=== PATIENT | female | born 1955 | race Caucasian/White ===

== ENCOUNTER → 2016-08-10 13:19 | Outpatient (CLI) | payer OTHER | END | disposition home or self-care (01) | LOC: D.MRI 13:19 | DX: M25.511 Pain in right shoulder (principal) ==

== ENCOUNTER → 2020-10-05 14:57 | Outpatient (CLI) | payer MEDICARE, OTHER | END | disposition home or self-care (01) | LOC: D.MRI 14:57 | PROVIDERS: ATTEND Clinical Nurse Specialist Family Health | DX: M25.512 Pain in left shoulder (principal) ==